=== PATIENT | female | born 1955 | race Hispanic/Latino ===

== ENCOUNTER 2017-03-02 22:07 | Emergency (ER) | payer BC ==
--- NOTE | 2017-03-02 22:54 | ED PDOC ---
HPI: Psych/Substance Abuse Time Seen by Provider: 03/02/17 22:15 Chief Complaint (Nursing): Psychiatric Evaluation Chief Complaint (Provider): Psych Eval History Per: Patient, EMS Additional Complaint(s): Briana Ball is a 61 y/o female brought in by EMS to the ER on 03/02/2017 for a psychiatric evaluation. Patient reports leaving the house after having an argument earlier with her and calling her son, stating she "does not want to live anymore. This prompted the son to notify his father, who brought his to the ER via EMS. Patient admits to drinking two glasses of wine earlier this evening. Upon arrival, she states she was not serious about her earlier claim as she was just upset. She denies any suicidal or homicidal ideation. Past Medical History Reviewed: Historical Data, Nursing Documentation, Vital Signs Vital Signs: Last Vital Signs Temp 98 F 03/02/17 22:12 Pulse 120 H 03/02/17 22:12 Resp 20 03/02/17 22:12 BP 163/105 H 03/02/17 22:12 Pulse Ox 96 03/02/17 22:12 - Medical History PMH: Hypercholesterolemia, Hypothyroidism - Surgical History Surgical History: No Surg Hx - Family History Family History: States: Unknown Family Hx - Living Arrangements Living Arrangements: With Family - Social History Current smoker - smoking cessation education provided: No Alcohol: Social Drugs: Denies - Allergies Allergies/Adverse Reactions: Allergies Allergy/AdvReac Type Severity Reaction Status Date / Time No Known Allergies Allergy Verified 03/02/17 22:49 Review of Systems ROS Statement: Except As Marked, All Systems Reviewed And Found Negative Constitutional: Negative for: Fever Psych: Negative for: Suicidal ideation Physical Exam - Reviewed Nursing Documentation Reviewed: Yes Vital Signs Reviewed: Yes - Physical Exam Appears: Positive for: Non-toxic, No Acute Distress (tearful, but cooperative ) Head Exam: Positive for: ATRAUMATIC, NORMOCEPHALIC Skin: Positive for: Normal Color, Warm, Dry Eye Exam: Positive for: Normal appearance, EOMI, PERRL Neck: Positive for: Normal, Painless ROM, Supple Cardiovascular/Chest: Positive for: Regular Rate, Rhythm. Negative for: Murmur Respiratory: Positive for: Normal Breath Sounds. Negative for: Wheezing, Respiratory Distress Extremity: Positive for: Normal ROM. Negative for: Deformity, Swelling Neurologic/Psych: Positive for: Alert, Oriented (x3). Negative for: Motor/ Sensory Deficits - ECG O2 Sat by Pulse Oximetry: 96 Medical Decision Making Medical Decision Makin:15 Initial Impression- Adjustment Disorder Initial Plan- * Crisis evaluation Documented by Palomo Oliver, acting as a scribe for Marcela Matt MD. All medical record entries made by the Scribe were at my direction and personally dictated by me. I have reviewed the chart and agree that the record accurately reflects my personal performance of the history, physical exam, medical decision making, and the department course for this patient. I have also personally directed, reviewed, and agree with the discharge instructions and disposition. Disposition - Clinical Impression Clinical Impression: Adjustment disorder - Disposition Referrals: [facility] [Outside] Disposition Time: 00:00 Condition: IMPROVED Instructions: Mood Disorders (ED) Patient Signed Over To: Brain Caceres Handoff Comments: Pending EtOH level and Crisis evaluation.
--- NOTE | 2017-03-03 00:04 | ED PDOC ---
- ECG O2 Sat by Pulse Oximetry: 96 Medical Decision Making Medical Decision Makin:00 Patient is being signed out to me by Marcela Matt MD pending crisis evaluation , reevaluation, and final disposition. 2:35 Upon provider reevaluation and as per instruction of , patient will be discharged. Patient is feeling better, counseling was provided, and all questions were answered regarding diagnosis of adjustment disorder. There is agreement to discharge plan. Return if symptoms persist or worsen. Scribe Attestation: Documented by Cecilia Taylor, acting as a scribe for Brain Caceres MD. Provider Scribe Attestation: All medical record entries made by the Scribe were at my direction and personally dictated by me. I have reviewed the chart and agree that the record accurately reflects my personal performance of the history, physical exam, medical decision making, and the department course for this patient. I have also personally directed, reviewed, and agree with the discharge instructions and disposition. Disposition Discussed With DrMagda: Ozzie Ruiz - Clinical Impression Clinical Impression: Adjustment disorder - POA Present On Arrival: None - Disposition Referrals: [facility] [Outside] Disposition: Routine/Home Disposition Time: 02:35 Condition: IMPROVED Instructions: Mood Disorders (ED)
[2017-03-03 03:46] VITALS: BP 115/65; PULSE 78; RESP 16; TEMP 98.8
[2017-03-03 05:24] VITALS: O2SAT 96
== END 2017-03-03 03:46 | disposition home or self-care (01) ==
LOC: MERGE 22:07 → H.ER 22:07
DX: F43.20 Adjustment disorder, unspecified (principal); E03.9 Hypothyroidism, unspecified; E78.00 Pure hypercholesterolemia, unspecified
CPT/HCPCS: 82948; 99282; G0480